=== PATIENT | male | born 1935 | race Caucasian/White ===

== ENCOUNTER 2021-02-17 14:19 | Outpatient (REF) | payer MEDICARE, OTHER, SELFPAY | END 2021-02-17 14:20 | disposition home or self-care (01) | LOC: HO.LAB 14:19 | PROVIDERS: PCP Family Medicine; Visit Provider Internal Medicine | DX: Z20.822 Contact with and (suspected) exposure to COVID-19 (principal) | CPT/HCPCS: C9803; U0003; U0005 ==